=== PATIENT | female | born 1965 | race African-American/Black ===

== ENCOUNTER 2017-09-19 17:10 | Emergency (ER) | payer OTHER ==
[2017-09-19 17:16] VITALS: BP 154/98; PULSE 85; TEMP 98.1; BMI 32.5
[2017-09-19] MEDS ORDERED: AMOXICILLIN 500 MG CAPSULE (FP) PO ONE (18:07)
--- NOTE | 2017-09-19 18:13 | PDOC ---
History of Present Illness - General Chief Complaint: Ear Problem Stated Complaint: TOOTHACHE/EAR ACHE Time Seen by Provider: 09/19/17 17:33 History Source: Patient Exam Limitations: No Limitations - History of Present Illness Initial Comments: 09/19/17 18:06 Patient here with complaints of right posterior molar pain. States cracked, middle of the week, and thought she could sustain the pain until she could see her dentist on Thursday. States is progressively worsened to where now has radiating pain to her ear. Denies fever, denies swelling to gums, has been using ibuprofen and another family member's penicillin for treatment Timing/Duration: unsure, 1 week Severity: mild, moderate Associated Symptoms: denies: fever/chills Past History - Travel Traveled outside of the country in the last 30 days: No Close contact w/someone who was outside of country & ill: No - Past Medical History Allergies/Adverse Reactions: Allergies Allergy/AdvReac Type Severity Reaction Status Date / Time Sulfa (Sulfonamide Allergy Verified 09/19/17 17:16 Antibiotics) Home Medications: Ambulatory Orders Amoxicillin - [Amoxicillin 500mg Capsule -] 500 mg PO TID #21 capsule 09/19/17 Ibuprofen 800 mg PO ASDIR 09/19/17 Ibuprofen [Motrin -] 800 mg PO QID 09/19/17 Naproxen Sodium [Aleve] 220 mg PO BID 09/19/17 Naproxen [Naprosyn -] 500 mg PO TID #28 tablet 09/19/17 Penicillin V Potassium [Pen Vee K -] 250 mg PO TID 09/19/17 Asthma: Yes COPD: No - Suicide/Smoking/Psychosocial Hx Smoking History: Never smoked Review of Systems - Review of Systems Able to Perform ROS?: Yes Is the patient limited Irish proficient: Yes Constitutional: Yes: Symptoms Reported, See HPI *Physical Exam - Vital Signs Last Vital Signs Temp Pulse Resp BP Pulse Ox 98.1 F 85 18 154/98 99 09/19/17 17:13 09/19/17 17:13 09/19/17 17:13 09/19/17 17:13 09/19/17 17:13 - Physical Exam General Appearance: Yes: Nourished, Appropriately Dressed, Apparent Distress, Moderate Distress HEENT: positive: EOMI, JIM, TMs Normal, Pharynx Normal, Rhinorrhea, Other ( cracked and broken tooth to lower right posterior molar . No swelling to inner gingival surface, no swelling to face, no noted abscess. Range of motion is painful at TMJ and has radiating pain along the right cheek to her ear.) Neck: positive: Supple, Lymphadenopathy (R), Lymphadenopathy (L). 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 *DC/Admit/Observation/Transfer Diagnosis at time of Disposition: Toothache - Discharge Dispostion Disposition: HOME Condition at time of disposition: Stable Admit: No - Prescriptions Prescriptions: Amoxicillin - [Amoxicillin 500mg Capsule -] 500 mg PO TID #21 capsule Naproxen [Naprosyn -] 500 mg PO TID #28 tablet - Referrals Referrals: Nacho Badillo [Primary Care Provider] - - Patient Instructions Printed Discharge Instructions: Prickly Tripp (Alternative Therapy), DI for Dental Pain Additional Instructions: Rest, drink lots of fluids: Teas, water, soups Saltwater gargles/ keep mouth clean and rinse after each meal May use wet teabag for pain relief to area Avoid hard chewing foods, stick to ice cream, Jell-O, yogurt etc. Tylenol or Motrin for fever and pain Amoxicillin 500 mg 3 times a day for one week Have received Bupivicaine for long acting anesthesia Complete all medication as prescribed Seek dental appointment as soon as possible for evaluation of dental injury/pain Followup with private physician in one to 2 days as needed Return to emergency department for worsened symptoms, fevers, swelling to face or worsened pain - Post Discharge Activity
[2017-09-19] MEDS ORDERED: AMOXICILLIN 250 MG CAPSULE ONE (18:26)
== END 2017-09-19 18:33 | disposition home or self-care (01) ==
LOC: JERFT 17:10
PROC: 3E013BZ Introduction of Anesthetic Agent into Subcutaneous Tissue, Percutaneous Approach (ICD-10-PCS; principal; 2017-09-19)
DX: K03.81 Cracked tooth (principal)
CPT/HCPCS: 96372; 99281-25